=== PATIENT | female | born 1950 | race Two or more races ===

== ENCOUNTER 2021-04-04 05:30 | Day surgery (SDC) | payer OTHER ==
[~2021-04-04 05:30] MED LIST: CARVEDILOL12.5 MG PO; FENOFIBRIC PO; GABAPENT PO; GLIMEPIRIDE4 M1 PO; HYDROCHLOROTH12.5 MG PO; LEVO-T175 MCG PO; OMEPRAZ PO; ROSUVASTATIN CA20 MG PO; SINGULAIR10 MG PO; ULTRAM50 MG PO; VALSARTAN160 MG PO
== END 2021-04-04 15:30 | disposition home or self-care (01) ==
LOC: CIR.AMB 05:30
PROVIDERS: ATTEND Colon & Rectal Surgery
DX: K56.51 Intestinal adhesions [bands], with partial obstruction (principal); J45.909 Unspecified asthma, uncomplicated; E11.9 Type 2 diabetes mellitus without complications; M19.90 Unspecified osteoarthritis, unspecified site; E03.9 Hypothyroidism, unspecified; G47.33 Obstructive sleep apnea (adult) (pediatric); E78.00 Pure hypercholesterolemia, unspecified